=== PATIENT | female | born 1960 | race Caucasian/White ===

== ENCOUNTER 2025-04-28 15:27 | Outpatient (CLI) | payer BC, SELFPAY ==
--- NOTE | ~2025-04-28 | MM_ITS ---
EXAMINATION: screening [facility] BI w [facility] INDICATION: Asymptomatic, referred for screening mammogram COMPARISON: None available TECHNIQUE: Digital Breast Tomosynthesis CC, MLO views of Both breasts were obtained with computer-aided detection to assist in interpretation of the study. FINDINGS: There are scattered areas of fibroglandular density. There is a focal asymmetry in the central retroareolar left breast at middle third. There is an asymmetry seen on the MLO view in the inferior left breast at middle third. There is a prominent lymph node seen in the lower left axilla. Elsewhere, there are no mammographic features of malignancy. IMPRESSION: 1. Left breast asymmetries and prominent left axillary lymph node. 2. No evidence of malignancy in the Right breast. RECOMMENDATION: Left breast Diagnostic mammogram with true lateral, appropriate spot compression views and an ultrasound if needed. Left axillary ultrasound BI-RADS Category 0: Incomplete: Needs additional imaging evaluation. Reviewed, dictated and finalized at location B. IMPRESSION: 1. Left breast asymmetries and prominent left axillary lymph node. 2. No evidence of malignancy in the Right breast. RECOMMENDATION: Left breast Diagnostic mammogram with true lateral, appropriate spot compressio n views and an ultrasound if needed. Left axillary ultrasound BI-RADS Category 0: Incomplete: Needs additional imaging evaluation.
== END 2025-04-28 15:28 | disposition home or self-care (01) ==
LOC: MICIMG 15:29
PROVIDERS: PCP Family Medicine; Visit Provider Nurse Practitioner Family
DX: Z12.31 Encounter for screening mammogram for malignant neoplasm of breast (principal); R92.8 Other abnormal and inconclusive findings on diagnostic imaging of breast
CPT/HCPCS: 77063; 77067